=== PATIENT | female | born 1965 | race Caucasian/White ===

== ENCOUNTER → 2024-01-08 | Day surgery (SDC) | payer BC ==
[~2024-01-08] MED LIST: ACETAMINOPHEN 1000 MG/100 ML IV ONE; ANTIOXIDANT SO1 EACH PO; CALCIUM PO; DEXAMETHASONE SOD PHOS INJ 4 MG/ML SDV ONE; DEXMEDETOMIDINE HCL 200 MCG/2 ML VIAL ONE; FAMOTIDINE 20 MG/2 ML VIAL IV ONE; FENTANYL CITRATE/PF 100MCG/2 ML INJ ONE; KETOROLAC TROMETHAMINE 30 MG/ML VIAL ONE; LIDOCAINE HCL 2% LOCAL INJ 5 ML SDV VIAL INJ ONE; MIDAZOLAM HCL 2 MG/2 ML VIAL ONE; MISOPROSTOL100 MCG PO; ONDANSETRON HCL INJ 2MG/ML 2ML 2 MG/ML VIAL ONE; PROPOFOL IV EMULSION 10 MG/ML 20 ML VIAL ONE; SEVOFLURANE INHAL SOLN 250 ML PEN BTL ONE
[2024-01-08] MEDS: LACTATED RINGER'S 1,000 ML ONE (07:19)
[2024-01-08 07:23] LABS: BASOPHILS # (AUTO) 0.1 (0.0-0.1); BASOPHILS % 0.7 % (0.0-1.0); EOSINOPHILS # (AUTO) 0.2 (0.0-0.4); EOSINOPHILS % 1.9 % (0.0-6.0); HEMATOCRIT 43.7 % (34.2-44.1); HEMOGLOBIN 14.1 g/dL (12.0-16.0); LYMPHOCYTES # (AUTO) 2.2 (1.0-3.2); LYMPHOCYTES % 20.4 % (18.0-39.1); MEAN CORPUSCULAR HEMOGLOBIN 29.1 pg (28-32); MEAN CORPUSCULAR HGB CONC 32.3 g/dL (31-35); MEAN CORPUSCULAR VOLUME 90.3 fL (81-99); MONOCYTES # (AUTO) 0.4 (0.2-0.8); MONOCYTES % 3.9 % (4.4-11.3); NEUTROPHILS # (AUTO) 7.8 (2.1-6.9); NEUTROPHILS % 72.7 % (38.7-80.0); PLATELET COUNT 279 x10e3/uL (140-360); RED BLOOD COUNT 4.84 x10e6/uL (3.6-5.1); RED CELL DISTRIBUTION WIDTH 13.3 % (11.7-14.4); WHITE BLOOD COUNT 10.79 x10e3/uL (4.8-10.8)
[2024-01-08 07:31] LABS: BILIRUBIN,URINE NEGATIVE (NEGATIVE); CLARITY,URINE CLEAR (CLEAR); COLOR,URINE YELLOW (YELLOW); GLUCOSE, URINE NEGATIVE (NEGATIVE); KETONES,URINE NEGATIVE (NEGATIVE); LEUKOCYTE ESTERASE ,URINE NEGATIVE (NEGATIVE); NITRITE,URINE NEGATIVE (NEGATIVE); PH,URINE 6 (5 - 7); PROTEIN,URINE DIPSTICK NEGATIVE (NEGATIVE); URINE UROBILINOGEN 0.2 mg/dL (0.2 - 1)
[2024-01-08 10:23] LABS: HIV 1&2 AB SCREEN NON-REACTIVE (NONREACTIVE)
[2024-01-08 12:10] VITALS: BP 132/71; PULSE 74; RESP 18; O2SAT 99
[2024-01-11 05:46] LABS: HEPATITIS B SURFACE AG (P) Negative; HEPATITIS C ANTIBODY Non Reactive
== END | disposition home or self-care (01) ==
LOC: OR 06:38
PROVIDERS: ATTEND Specialist
DX: N84.0 Polyp of corpus uteri (principal); G47.33 Obstructive sleep apnea (adult) (pediatric); E66.01 Morbid (severe) obesity due to excess calories; G89.29 Other chronic pain; N20.0 Calculus of kidney; M41.9 Scoliosis, unspecified; Q82.0 Hereditary lymphedema; Z01.810 Encounter for preprocedural cardiovascular examination; Z01.812 Encounter for preprocedural laboratory examination; Z79.899 Other long term (current) drug therapy
CPT/HCPCS: 36415; 58558; 76830; 76856; 81003; 84702; 85025; 86850; 86900; 87390; 88305; 93005; G0433; G0435; J0131; J0694; J1100; J1885; J2001; J2250; J2405; J2704; J3010; J7121; 88304